=== PATIENT | female | born 1935 | race Caucasian/White ===

== ENCOUNTER 2017-02-13 11:34 | Observation (INO) | payer MEDICARE ==
[~2017-02-13] VITALS: Ht 167.6 cm; Wt 65.0 kg
[~2017-02-13 11:34] MED LIST: ALEVE220 M2 PO; AMITRIPTYLINE H50 MG PO; ATIVAN0.5 MG PO; CLARITIN10 M2 PO; FLEXERIL10 MG PO; LEVOTHYROXINE112 MCG PO; LEVOXYL100 MCG PO; LISINOPRIL20 MG PO; MAGNESIUM OXID400 MG PO; MELATONIN3 MG PO; METHYLPREDNISOLO4 MG PO; MIRALAX17 GM PO; NEURONTIN300 MG PO; PHENYTOIN SODI100 PO; PRAVACHOL40 MG PO; RED YEAST RICE600 MG PO; REMERON45 MG PO; RESTORIL7.5 MG PO; SONATA5 MG PO; STOOL SOFTENER50 MG PO; TRAMADOL HCL50 MG PO; TYLENOL325 M1 PO; ZINC15 M1 PO
[2017-02-13] MEDS ORDERED: TYLENOL325 M2 PO ×2 (11:51→11:54)
[2017-02-13] MEDS ORDERED: NEURONTIN300 M1 PO (11:51)
[2017-02-13] MEDS ORDERED: CELEBREX200 M1 PO (11:51)
[2017-02-13] MEDS ORDERED: SYNTHROID125 MC1 PO (11:52)
[2017-02-13] MEDS ORDERED: BONIVA150 M1 PO (11:52)
[2017-02-13] MEDS ORDERED: PHENYTOIN50 MG PO (11:53)
[2017-02-13] MEDS ORDERED: MELATONIN3 M4 PO (11:53)
[2017-02-13] MEDS ORDERED: MAGNESIUM OXID400 M1 PO (11:53)
[2017-02-13] MEDS ORDERED: REMERON45 M1 PO (11:53)
[2017-02-13] MEDS ORDERED: ATIVAN0.5 M1 PO ×2 (11:53→11:55)
[2017-02-13] MEDS ORDERED: DILANTIN PO (11:53)
[2017-02-13] MEDS ORDERED: PRINIVIL20 M1 PO (11:53)
[2017-02-13] MEDS ORDERED: VITAMIN D31000 UNI4 PO (11:54)
[2017-02-13] MEDS ORDERED: PRAVACHOL40 M1 PO (11:54)
[2017-02-13] MEDS ORDERED: ZINC30 M2 PO (11:54)
[2017-02-13] MEDS ORDERED: NORCO 5-325 TA1 EACH PO (11:55)
[2017-02-13] MEDS ORDERED: SENNA PLUS TAB1 EAC1 PO (11:56)
[2017-02-13 12:15] LABS: BASO % 0.6 % (0-2); BASO ABSOLUTE COUNT 0.1 tho/cmm (0.0-0.2); EOS % 3.3 % (0-7); EOSINOPHIL ABSOLUTE COUNT 0.3 tho/cmm (0.0-0.7); HCT-HEMATOCRIT 34.8 % (34.0-49.0); HGB-HEMOGLOBIN 11.8 gm/dl (12.0-15.5); IMMATURE GRANULOCYTES ABSOLUTE 0.02 tho/cmm (0-0.03); IMMATURE GRANULOCYTES PERCENT 0.2 % (0-0.3); LYMPH ABSOLUTE COUNT 4.3 tho/cmm (0.8-4.5); MCH (MEAN CORPUSCULAR HGB) 30.6 pg (28.0-32.0); MCHC MEAN CORPUSCULAR HGB CONC 33.9 % (32.0-36.0); MCV (MEAN CELL VOLUME) 90.2 fl (82.0-96.0); MEAN PLATELET VOLUME 8.4 cmc (9.4-12.4); MONO % 7.8 % (0-12); MONOCYTE ABSOLUTE COUNT 0.7 tho/cmm (0.0-1.2); NEUTROPHIL ABSOLUTE COUNT 3.4 tho/cmm (1.6-8.0); NEUTROPHIL-AUTOMATED 3.4 tho/cmm (1.6-8.0); NEUTROPHILS % 39.1 % (40-80); PLATELET COUNT 337 tho/cmm (150-450); RED BLOOD COUNT 3.86 mil/cmm (4.00-5.20); RED CELL DISTRIBUTION WIDTH 12.3 % (12.4-16.4); WHITE BLOOD COUNT 8.7 tho/cmm (4.0-10.0)
[2017-02-13 12:30] LABS: ALB/GLOB RATIO 1.3 (0.8-2.0); ALBUMIN 4.3 g/dl (3.5-5.0); ALKALINE PHOSPHATASE 97 U/L (33-138); ALT/SGPT 23 U/L (12-78); ANION GAP 13 mmol/L (0-20); AST/SGOT 12 U/L (10-40); BILIRUBIN,TOTAL 0.2 mg/dl (0-1.5); BLOOD UREA NITROGEN 25 mg/dl (6-24); CALCIUM 9.4 mg/dl (8.5-10.5); CARBON DIOXIDE-VENOUS 25 mmol/L (22-32); CHLORIDE 101 mmol/l (96-110); CREATININE 0.96 mg/dl (0.50-1.10); GLUCOSE 131 mg/dL (70-110); POTASSIUM 4.2 mmol/L (3.7-5.1); SODIUM 135 mmol/L (135-145); eGFR VALUE FOR BLACK 65 mL/Min
[2017-02-13 12:44] LABS: LIPASE 221 U/L (73-393)
[2017-02-14 03:05] LABS: URINE BILIRUBIN NEGATIVE (NEG); URINE BLOOD SMALL (NEG); URINE GLUCOSE (UA) NEGATIVE (NEG); URINE KETONE NEGATIVE (NEG); URINE LEUKOCYTE ESTERASE NEGATIVE (NEG); URINE NITRITE NEGATIVE (NEG); URINE PROTEIN NEGATIVE (NEG); URINE SPECIFIC GRAVITY 1.005 (1.003-1.030)
[2017-02-14 03:06] LABS: URINE APPEARANCE CLEAR; URINE COLOR PALE YELLOW
[2017-02-14 04:07] LABS: URINE RBC 0-1 /[HPF] (0-5); URINE WBC 0-1 /[HPF] (0-5)
[2017-02-14 04:08] LABS: URINE EPITHELIAL CELLS 0-5 /[HPF] (0-10)
[2017-02-14 07:20] LABS: BASO % 0.2 % (0-2); EOSINOPHIL ABSOLUTE COUNT 0.1 tho/cmm (0.0-0.7); HCT-HEMATOCRIT 34.1 % (34.0-49.0); HGB-HEMOGLOBIN 11.9 gm/dl (12.0-15.5); IMMATURE GRANULOCYTES ABSOLUTE 0.01 tho/cmm (0-0.03); IMMATURE GRANULOCYTES PERCENT 0.1 % (0-0.3); LYMPH % 20.9 % (20-45); MCH (MEAN CORPUSCULAR HGB) 31.4 pg (28.0-32.0); MCHC MEAN CORPUSCULAR HGB CONC 34.9 % (32.0-36.0); MEAN PLATELET VOLUME 8.4 cmc (9.4-12.4); MONO % 8.9 % (0-12); MONOCYTE ABSOLUTE COUNT 0.9 tho/cmm (0.0-1.2); NEUTROPHIL ABSOLUTE COUNT 6.7 tho/cmm (1.6-8.0); NEUTROPHIL-AUTOMATED 6.7 tho/cmm (1.6-8.0); NEUTROPHILS % 68.9 % (40-80); PLATELET COUNT 292 tho/cmm (150-450); RED BLOOD COUNT 3.79 mil/cmm (4.00-5.20); RED CELL DISTRIBUTION WIDTH 12.4 % (12.4-16.4); WHITE BLOOD COUNT 9.7 tho/cmm (4.0-10.0)
[2017-02-14 07:36] LABS: ANION GAP 11 mmol/L (0-20); BLOOD UREA NITROGEN 14 mg/dl (6-24); CALCIUM 8.7 mg/dl (8.5-10.5); CARBON DIOXIDE-VENOUS 26 mmol/L (22-32); CHLORIDE 102 mmol/l (96-110); CREATININE 0.72 mg/dl (0.50-1.10); GLUCOSE 113 mg/dL (70-110); POTASSIUM 4.3 mmol/L (3.7-5.1); SODIUM 135 mmol/L (135-145); eGFR VALUE FOR BLACK >90 mL/Min
== END 2017-02-14 16:50 | disposition other institution (70) ==
LOC: EDMED → EDBD 11:34 → EDMED 11:34 → 5EB 15:12 → EMR2 15:12 → 5EB 16:10
PROVIDERS: Emergency Medicine; ADMIT Family Medicine
DX: I45.2 Bifascicular block (principal); R55 Syncope and collapse; F32.9 Major depressive disorder, single episode, unspecified; F41.9 Anxiety disorder, unspecified; G47.00 Insomnia, unspecified; G91.9 Hydrocephalus, unspecified; I10 Essential (primary) hypertension; E78.5 Hyperlipidemia, unspecified; G89.29 Other chronic pain; Z79.899 Other long term (current) drug therapy; Z79.891 Long term (current) use of opiate analgesic; Z79.52 Long term (current) use of systemic steroids
CPT/HCPCS: C8929; G0378; G8978-GP-CJ; G8979-GP-CJ; G8980-GP-CJ; G8987-GO-CJ; G8988-GO-CI; G8989-GO-CJ